=== PATIENT | female | born 1990 | race Hispanic/Latino ===

== ENCOUNTER → 2018-11-25 | Outpatient (REF) | payer OTHER ==
[2018-11-25 22:45] LABS: CHLAMYDIA DNA AMPLIFICATION NEGATIVE (NEGATIVE); GC DNA AMPLIFICATION NEGATIVE (NEGATIVE)
== END ==
LOC: M SFHCLERA 15:25
PROVIDERS: ATTEND Nurse Practitioner Family
DX: N89.8 Other specified noninflammatory disorders of vagina (principal)

== ENCOUNTER 2020-03-31 21:36 | Inpatient (IN) | payer OTHER ==
[~2020-03-31] VITALS: Ht 157.5 cm; Wt 71.0 kg
[2020-03-31 21:57] VITALS: BP 114/69
[2020-03-31] MEDS ORDERED: OXYTOCIN DRIP 30 UNITS in IV 1 EA IV SCH (22:30)
--- NOTE | 2020-03-31 22:37 | HPEPDOC ---
Obstetrical History & Physical General Date of Admission March 31, 2020 at 21:36 History of Present Illness Patient is a 29 yo @ 40+3 wks gestation presents for scheduled induction of labor for pending post dates. patient denies cramping/vb. +FM Information Provided By: Patient Age: 29 : 3 Term: 2 Pre-term: 0 Abortions: 0 Livin Care Care: None Dating Final EDC: March 28, 2020 Final EDC for Daily Update: March 28, 2020 Final EDC by: LMP, 1st trimester (US) Past Medical History Past Obstetrical History : Past Obstetrical History: Multigravida ( x 2, largest baby [id number]) PSS DELIVERY PROFESSIONAL History: No pertinent history Past Medical History Medical History denies Family History Significant Family History: Other (laparoscopic cystectomy) Social History Marital Status: Family situation: Spouse/partner home * Smoker: non-smoker Alcohol: Denies Drugs: denies Imunizations Tdap status: current Influenza Status: current Allergies Coded Allergies: No Known Allergies (Unverified , 03/31/20) Physical Examination Physical Examination GENERAL: Alert and oriented times three. BREAST: . ABDOMEN: Gravid and non-tender to touch. FETUS: Is vertex (VTX) by sterile vaginal examination (SVE), fetus is vertex (VTX) by Kapil. HEART RATE: Regular rate and rhythm. LUNGS: Clear to auscultation (CTA). EXTREMITIES: No edema. No clonus. efw: [id number] Laboratory Data 24H LABS Laboratory Tests 2 03/31/20 21:47: Serology Scanned Report Hepatitis B Testing Pertinent Laboratoy Data Blood Type: A+ RBC Antibody Screen: Negative HIV: Negative Hepatitis B: Negative Rapid Plasma Reagin: Nonreactive Rubella: Immune Chlamydia/Gonorrhea: Negative Group B Streptococcus: Negative Anatomy Ultrasound Placenta Location: Posterior Vaginal Examination Dilation: 3 cm Effacement: 50% Station: -3 Cervical Consistency: Medium Cervical Position: Posterior Presentation: Cephalic presentation Assessment Heart Rate (FHR): 130 Variability: Moderate Accelerations: Positive Decelerations: None Tocometer Contractions: Yes Frequency: irregular Assessment/Plan Assessment patient is a 29 yo @ 40+3wks admitted for IOL. discussed internal and external monitory. risks of emergent section, infection, bleeding requiring blood transfusion and associated risk, use of forceps or vacuum with associated risks, episiotomy discussed with patient. Plan Admit and orient. Transitions Rn Care Coordinator and consent. Diet: clears Group B Streptococcus (GBS) negative. Labs and intravenous (IV) per unit protocol. Counseled on Pitocin and induction of labor (IOL). pelvis proven VELMA ROLLINS DO March 31, 2020 22:37
[2020-03-31 22:42] LABS: HEMATOCRIT 37.6 % (36.0-47.0); HEMOGLOBIN 12.9 g/dl (12.0-15.5); MEAN CORPUSCULAR HEMOGLOBIN 30.7 pg (27.0-33.0); MEAN CORPUSCULAR HGB CONC 34.3 g/dl (32.0-36.5); MEAN CORPUSCULAR VOLUME 89.5 fl (80.0-96.0); PLATELET COUNT, AUTOMATED 264 10^3/uL (150-450); WHITE BLOOD COUNT 11.3 10^3/uL (4.0-10.0)
[2020-03-31 22:59] VITALS: BP 120/77
[2020-03-31 23:29] VITALS: BP 114/80
[2020-04-01] VITALS (15 sets, daily range): BP systolic 111–142; BP diastolic 62–82
[2020-04-01] MEDS ORDERED: AMPICILLIN SOD/SULBACTAM SOD 3 GM in D5W MINI-BAG PLUS 100 ML IV SCH (02:45)
[2020-04-01] MEDS ORDERED: OXYTOCIN DRIP 30 UNITS in IV 1 EA IV SCH (04:43)
[2020-04-01] MEDS ORDERED: DIBUCAINE 1% OINTMENT 30GM TOP PRN (04:45)
[2020-04-01] MEDS ORDERED: RHOGAM 300 MCG (1500 IU) INJ (J2790) IM SCH (04:45)
[2020-04-01] MEDS ORDERED: MEASLES,MUMPS,RUBELLA VACCINE INJ (MMR-II) (90707) SC SCH (04:45)
[2020-04-01] MEDS ORDERED: DOCUSATE SODIUM 100 MG CAP PO PRN (04:45)
[2020-04-01] MEDS ORDERED: ACETAMINOPHEN TAB 650MG DOSE (2X325MG) PO PRN (04:45)
--- NOTE | 2020-04-01 04:51 | DNPDOC ---
[facility] Delivery Note Delivery Note DATE OF DELIVERY: 04/01/2020 PREDELIVERY DIAGNOSIS: 40+3/7 weeks' gestation and labor. POST DELIVERY DIAGNOSIS: Delivered. PROCEDURE: Spontaneous vaginal delivery SCHOOL COMMISSIONER: Dr. Velma Hughes ANESTHESIA: none ESTIMATED BLOOD LOSS: 250 mL. FINDINGS: 7lbs 5 ounce female , Score 9/9, nuchal cord times x1. DELIVERY SUMMARY: Come to assess patient with urge to push. Check to be anterior lip. AROM, clear. Patient progressed to c/c shortly after. With good maternal effort, baby delivered OA, restituted LOT. Nuchal cord reduced. Anterior shoulder deli katey. Posterior shoulder delivered. body followed with ease. baby placed on maternal abdomen. Cord allowed to stop pulsating. cord clamped x 2 and cut by FOB. Pitocin bolus started. Placenta delivered spontaneously. fundus massaged firm. inspection revealed no laceration. Baby and mother bonding when I left the room. VELMA HUGHES DO April 01, 2020 04:51
[2020-04-01] MEDS: IBUPROFEN 800 MG TAB PO PRN ×2 (05:07→16:39)
[2020-04-01] MEDS: PRENATAL VITAMINS CHEWABLE TABLET PO SCH (16:39)
[2020-04-02] MEDS: IBUPROFEN 800 MG TAB PO PRN (03:19)
[2020-04-02 05:59] VITALS: BP 111/69
[2020-04-02] MEDS: PRENATAL VITAMINS CHEWABLE TABLET PO SCH (09:46)
[2020-04-02] MEDS ORDERED: DIBU10OI TOP (10:42)
[2020-04-02] MEDS ORDERED: IBUP80TA PO (10:42)
[2020-04-02] MEDS ORDERED: ACET1TAB55 PO (10:42)
[2020-04-02] MEDS ORDERED: DOCU100C16 PO (10:42)
--- NOTE | 2020-04-02 11:17 | DS.PDOC ---
Discharge Summary General Date of Admission March 31, 2020 at 21:36 Date of Discharge 04/02/2020 Discharge Summary PROCEDURES PERFORMED DURING STAY: None. ADMITTING DIAGNOSES: 1. Postdates term DISCHARGE DIAGNOSES: 1. Postdates term COMPLICATIONS/CHIEF COMPLAINT: Induction. HISTORY OF PRESENT ILLNESS: see H&P HOSPITAL COURSE: Patient had IOL with uncomplicated . Bleeding like menses. Tolerating diet. Passing flatus. Able to ambulate. Pain tolerable with pain medications. Urinating without difficulty. DISCHARGE MEDICATIONS: Please see below. ALLERGIES: Please see below. PHYSICAL EXAMINATION ON DISCHARGE: VITAL SIGNS: Please see below. GENERAL: No acute distress HEENT: MMM BREAST: Nontender, no erythema CARDIOVASCULAR EXAMINATION: RRR RESPIRATORY EXAMINATION: Bilaterally clear ABDOMINAL EXAMINATION: Soft, appropriate tenderness, nondistended, fundus -2 EXTREMITIES: no edema, nontender LABORATORY DATA: Please see below. IMAGING: none PROGNOSIS: Good ACTIVITY: Pelvic rest. DIET: Regular DISCHARGE PLAN: Home DISPOSITION: . DISCHARGE INSTRUCTIONS: 1. See attached. ITEMS TO FOLLOWUP ON ON OUTPATIENT: 1. 6wks in clinic. DISCHARGE CONDITION: Stable. TIME SPENT ON DISCHARGE: Greater than 10 minutes. Vital Signs/I&Os Vital Signs Date Time Temp Pulse Resp B/P (MAP) Pulse Ox O2 Delivery O2 Flow Rate FiO2 04/02/20 05:59 97.0 68 18 111/69 (83) 04/01/20 12:00 99 Room Air Discharge Medications Scheduled PRN Acetaminophen (Acetaminophen) 325 Mg Tablet, 650 MG PO Q4HP PRN for fever Dibucaine (Dibucaine) 28 Gm Oint...g., 0 DOSE TOP Q4HP PRN for PAIN Docusate Sodium (Docusate Sodium) 100 Mg Capsule, 100 MG PO QHSP PRN for CONSTIPATION Ibuprofen (Ibuprofen) 800 Mg Tablet, 800 MG PO Q8HP PRN for pain Allergies Coded Allergies: No Known Allergies (Unverified , 03/31/20) Darlene Orellana MD April 02, 2020 10:41
--- NOTE | 2020-04-02 11:17 | IPNPDOC ---
Progress Note Date of Service: April 02, 2020 Day#: 1 Progress Note SUBJECT: Patient is a 29-year-old 3 now Para 3 status post uncomplicated spontaneous vaginal delivery without post vaginal laceration and repair, doing well day # 1. She has been ambulating, voiding spontaneously without issue and tolerating regular diet. Breast feeding without issue. Reports lochia is like a normal period. Patient is ambulating well. Reports some cramping with . Denies any pain. OBJECTIVE: VITAL SIGNS: Within normal limits, afebrile. GENERAL: No acute distress HEENT: MMM BREAST: Nontender, no erythema CARDIOVASCULAR EXAMINATION: RRR RESPIRATORY EXAMINATION: Bilaterally clear ABDOMINAL EXAMINATION: Soft, appropriate tenderness, nondistended, fundus -2 PERINEUM: Intact, minimal lochia EXTREMITIES: no edema, nontender ASSESSMENT: Patient is a 29-year-old 3 now Para 3 status post uncomplicated spontaneous vaginal delivery without post vaginal laceration and repair, doing well day # 1. Vitals within normal limits, afebrile, hemodynamically stable with no evidence of infection. PLAN: 1. Discharge to home today. 2. Tylenol and Motrin for pain. 3. Encourage breast feeding and ambulation. 4. Routine PP visit in 6 weeks in clinic. 5. Discussed return precautions at length. VS, I&O, 24H, Fishbone Vital Signs/I&O Vital Signs Date Time Temp Pulse Resp B/P (MAP) Pulse Ox O2 Delivery O2 Flow Rate FiO2 04/02/20 05:59 97.0 68 18 111/69 (83) 04/01/20 12:00 99 Room Air Darlene Orellana MD April 02, 2020 10:39
== END 2020-04-02 13:50 | disposition home or self-care (01) | DRG 807 ==
LOC: M LDI 21:36 → M OBS 04-01 12:00
PROVIDERS: ADMIT Obstetrics & Gynecology; ATTEND Obstetrics & Gynecology
PROC: 3E033VJ Introduction of Other Hormone into Peripheral Vein, Percutaneous Approach (ICD-10-PCS; 2020-03-31)
PROC: 10E0XZZ Delivery of Products of Conception, External Approach (ICD-10-PCS; principal; 2020-04-01)
PROC: 10907ZC Drainage of Amniotic Fluid, Therapeutic from Products of Conception, Via Natural or Artificial Opening (ICD-10-PCS; 2020-04-01)
DX: O48.0 Post-term pregnancy (principal); Z37.0 Single live birth; Z3A.40 40 weeks gestation of pregnancy; O69.81X0 Labor and delivery complicated by cord around neck, without compression, not applicable or unspecified

== ENCOUNTER 2022-01-24 11:17 | Emergency (ER) | payer OTHER ==
[~2022-01-24] VITALS: Ht 157.5 cm; Wt 68.2 kg
[~2022-01-24 11:17] MED LIST: ACET1TAB55 PO; DIBU28OI2 TOP; DOCU100C16 PO; IBUP80TA PO
[2022-01-24] MEDS ORDERED: LEVORA-28 (11:34)
[2022-01-24] MEDS ORDERED: FLUORESCEIN OPHTH 1 MG STRIP OD ONE (13:10)
[2022-01-24] MEDS ORDERED: VALT1TAB PO (14:16)
[2022-01-24 14:26] VITALS: BP 128/76
== END 2022-01-24 14:27 | disposition home or self-care (01) ==
LOC: M ED 11:17
DX: H02.842 Edema of right lower eyelid (principal); B09 Unspecified viral infection characterized by skin and mucous membrane lesions